=== PATIENT | male | born 1960 | race African-American/Black ===

== ENCOUNTER → 2017-06-29 | Outpatient (CLI) | payer OTHER ==
[2017-06-29 12:58] LABS: BLOOD, URINE NEG (NEG); GLUCOSE,URINE NEG (NEG); KETONE, URINE NEG (NEG); MUCUS URINE FEW /lpf (OCC); NITRITE,URINE NEG (NEG); URINE COLOR YELLOW (YELLW/STRAW)
[2017-06-29 12:59] LABS: COMMENT (UR) CULT NOT INDICATED; CULTURE IF INDICATED CULT NOT INDICATED
[2017-06-29 12:59] LABS: ANION GAP 8 MEQ/L (5-15); AST (GOT) 25 U/L (15-37); BICARBONATE 29.2 MEQ/L (21.0-32.0); BLOOD UREA NITROGEN 14 MG/DL (7-18); CHLORIDE 105 MEQ/L (98-107); GLOMERULAR FILTRATION RATE 77 ML/MIN (>89); SODIUM (NA) 142 MEQ/L (136-145)
[2017-06-29 13:14] LABS: ALKALINE PHOSPHATASE 62 U/L (45-117); ALT (GPT) 33 U/L (12-78); GLUCOSE,FASTING 137 MG/DL (74-99); TOTAL BILIRUBIN ADULT 0.4 MG/DL (0.2-1.0)
[2017-06-29 13:21] LABS: MICRO ALBUMIN RANDOM URINE RAW 9.8 MG/L (0.0-30.0)
== END ==
LOC: OLAB 10:06
DX: R73.09 Other abnormal glucose (principal); I10 Essential (primary) hypertension; E78.01 Familial hypercholesterolemia
CPT/HCPCS: 80053; 81001; 82043; 84153; 84443